=== PATIENT | female | born 1995 | race Caucasian/White ===

== ENCOUNTER 2017-03-11 13:50 | Emergency (ER) | payer BC ==
[2017-03-11 13:54] VITALS: BP 126/81; BMI 27.3
--- NOTE | 2017-03-11 16:05 | DR.GENAD ---
HPI - PCP Primary Care Physician: DIANNA - HPI Comment HPI Comment: Pt states she fell in high school and her back 'hasn't been right' since then. No new injury, but stands on a concrete floor all day at work. Symptoms are less when she has a few days off. No prior imaging - Complaint/Symptoms Chief Complaint:: PT. C/O LOWER BACK PAIN THAT IS THROBBING IN NATURE WHICH RADIATES DOWN HER LEGS. PAIN HAS BEEN INTERMITTENT SINCE 2016. PT. STATES SHE WORKS ON HER FEET A LOT SO SHE THINKS THAT IS WHAT IS CAUSING HER PAIN. - Source History Provided: Patient - Mode of Arrival Mode of Arrival: Ambulatory - Timing Onset of Chief Complaint: 10/09/16 PMH - PMH Past Medical History: No Past Surgical History: No Surgical History: No History - Family History History of Family Medical Conditions: No - Social History Does patient currently use any type of tobacco product: Yes Have you used tobacco products in the last 12 months: Yes Type of Tobacco Use: Cigarettes Does any household member use tobacco: Yes Alcohol Use: None Do you use any recreational Drugs:: No Lives With: Significant Other Lives Where: Home - infectious screening In the last 2 months have you had wt loss of >10#?: NO Have you had fever, night sweats or hemotysis?: No Have you traveled outside the country in the last 6 months?: No Isolation: Standard ROS - Review of Systems Constitutional: No Symptoms Reported Eyes: No Symptoms Reported ENTM: No Symptoms Reported Respiratoy: No Symptoms Reported Cardiovascular: No Symptoms Reported Gastrointestinal/Abdominal: No Symptoms Reported Genitourinary: No Symptoms Reported Neurological: No Symptoms Reported Musculoskeletal: Back Pain, Other (radiates down both legs) Integumentary: No Symptoms Reported Hematologic/Lymphatic: No Symptoms Reported Endocrine: No Symptoms Reported Psychiatric: No Symptoms Reported All Other Systems: Reviewed and Negative PE - Vital Signs Vitals: Temperature 97.6 F Pulse Rate 78 Respiratory Rate 17 Blood Pressure 126/81 O2 Sat by Pulse Oximetry 97 - General Limitations: No Limitations General Appearance: Alert, In No Apparent Distress. negative: Appears Intoxicated, Anxious, Lethargic, Obtunded, In Distress, Obese, Cachectic - Head Head Exam: Normal Inspection - Eyes Eye exam: Normal Appearance - ENT ENT Exam: Normal Exam - Neck Neck Exam: Normal Inspection, Full ROM, Trachea Midline - Chest Chest Inspection: Normal Inspection - Respiratory Respiratory Exam: Normal Lung Sounds Bilat Respiratory Exam: Bilateral Clear to Auscultation - Cardiovascular Cardiovascular Exam: Regular Rate, Normal Rhythm - Abdominal Exam Abdominal Exam: Normal Inspection, Normal Bowel Sounds, Soft - Back Back Exam: Tenderness, Other (tender at L3 area bilaterally, no palp bony deformity, no stepoffs, no palpable muscle spasm) - Neurologic Neurological Exam: Alert, Oriented X3 - Psychiatric Psychiatric Exam: Normal Affect, Normal Mood - Skin Skin Exam: Warm, Dry, Intact. negative: Rash - Discharge Plan Condition: Stable - Follow ups/Referrals Follow ups/Referrals: [facility],None [Primary Care Provider] - 3 days - Instructions
--- NOTE | 2017-03-11 16:26 | RAD ---
HISTORY: Low back pain and radiculopathy. Study: 5 views of the lumbar spine. Comparison: None. Findings: 5 non-rib bearing lumbar vertebra. No acute fracture or listhesis. The vertebral body heights and d isc spaces are normal. The SI joints are normal. The soft tissues are unremarkable. IMPRESSION: Unremarkable exam. Reported By:
[2017-03-11 16:41] LABS: BILIRUBIN,URINE NEGATIVE (NEGATIVE); BLOOD/HEMOGLOBIN,URINE 3+ (NEGATIVE); GLUCOSE, URINE NEGATIVE (NEGATIVE); KETONES,URINE NEGATIVE (NEGATIVE); LEUKOCYTE ESTERASE ,URINE NEGATIVE (NEGATIVE); NITRITES,URINE NEGATIVE (NEGATIVE); PROTEIN,URINE NEGATIVE (NEGATIVE); UROBILINOGEN,URINE NORMAL (NORMAL)
[2017-03-11 17:01] LABS: COLOR,URINE YELLOW (YELLOW)
[2017-03-11 17:02] LABS: APPEARANCE,URINE CLEAR (CLEAR); BACTERIA,URINE 1+ /HPF (NEGATIVE); SQUAMOUS EPITHELIAL CELL,UR FEW /HPF (NEGATIVE)
== END 2017-03-11 17:26 | disposition home or self-care (01) ==
LOC: ER 14:03
DX: S39.012A Strain of muscle, fascia and tendon of lower back, initial encounter (principal); Y33.XXXA Other specified events, undetermined intent, initial encounter; Y92.69 Other specified industrial and construction area as the place of occurrence of the external cause
CPT/HCPCS: 72110; 81001; 99282

== ENCOUNTER 2021-07-17 01:23 | Inpatient (IN) ==
[2021-07-17 01:38] VITALS: BMI 31.4
[2021-07-17] MEDS ORDERED: D5 1/2 NS 1,000 ML 1,000 ML IV ONE (02:05)
[2021-07-17] MEDS ORDERED: LR 1,000 ML IV 1,000 ML IV ONE ×2 (02:41→02:59)
[2021-07-17 02:45] LABS: BILIRUBIN,URINE NEGATIVE (NEGATIVE); BLOOD/HEMOGLOBIN,URINE NEGATIVE (NEGATIVE); GLUCOSE, URINE NEGATIVE (NEGATIVE); KETONES,URINE NEGATIVE (NEGATIVE); LEUKOCYTE ESTERASE ,URINE 1+ (NEGATIVE); NITRITES,URINE NEGATIVE (NEGATIVE); PROTEIN,URINE NEGATIVE (NEGATIVE); UROBILINOGEN,URINE NORMAL (NORMAL)
[2021-07-17 02:52] LABS: APPEARANCE,URINE CLEAR (CLEAR); COLOR,URINE YELLOW (YELLOW)
[2021-07-17 02:53] LABS: BACTERIA,URINE TRACE /HPF (NEGATIVE); RBC,URINE 0-2 /HPF (0-3); SQUAMOUS EPITHELIAL CELL,UR MODERATE /HPF (NEGATIVE)
[2021-07-17] MEDS ORDERED: PHENERGAN INJ 25 MG IM PRN ×2 (02:57→11:07)
[2021-07-17] MEDS ORDERED: D5 LR + PITOCIN 10 UNITS/L 10 UNITS/1,000 ML BAG IV PRN (02:57)
[2021-07-17] MEDS ORDERED: PITOCIN IVP ONE (02:57)
[2021-07-17] MEDS ORDERED: DILAUDID INJ IVP PRN (02:57)
[2021-07-17] MEDS ORDERED: REGLAN INJ 10 MG VIAL IVP PRN (02:57)
[2021-07-17] MEDS ORDERED: D5 1/2 NS 1,000 ML 1,000 ML IV SCH ×2 (03:00)
[2021-07-17 03:11] LABS: BASOPHILS % (AUTO) 0.3 % (0.2-1.0); EOSINOPHILS % (AUTO) 0.1 % (0.9-2.9); HEMATOCRIT 34.8 % (36.0-47.0); HEMOGLOBIN 11.7 g/dL (12.0-16.0); LYMPHOCYTES # (AUTO) 1.1 X10^3/uL (1.3-2.9); LYMPHOCYTES % (AUTO) 8.9 % (21.0-51.0); MEAN CORPUSCULAR HEMOGLOBIN 27.1 pg (27.0-34.0); MEAN CORPUSCULAR HGB CONC 33.5 g/dL (33.0-35.0); MEAN CORPUSCULAR VOLUME 80.8 fL (80.0-100.0); MEAN PLATELET VOLUME 9.8 fL (7.4-11.0); MONOCYTES # (AUTO) 0.3 x10^3/uL (0.3-0.8); MONOCYTES % (AUTO) 2.5 % (0.0-13.0); NEUTROPHILS # (AUTO) 10.7 x10^3/uL (2.2-4.8); NEUTROPHILS % (AUTO) 88.2 % (42.0-75.0); RED BLOOD COUNT 4.31 X10^6/uL (3.5-5.4); RED CELL DISTRIBUTION WIDTH 14.3 % (11.6-16.5); WHITE BLOOD COUNT 12.1 X10^3/uL (3.6-10.0)
[2021-07-17] MEDS: STADOL INJ IVP PRN ×2 (03:15→07:40)
[2021-07-17 03:23] LABS: AMNISURE ROM TEST NO MEMBRANES RUPTURE (NO RUPTURE)
[2021-07-17 03:23] LABS: ALANINE AMINOTRANSFERASE 15 Units/L (12-78); ALBUMIN 2.5 g/dL (3.4-5.0); ALKALINE PHOSPHATASE 175 Units/L (46-116); ASPARTATE AMINO TRANSFERASE 10 Units/L (15-37); BLOOD UREA NITROGEN 6 mg/dL (7-18); CALCIUM 8.2 mg/dL (8.5-10.1); CARBON DIOXIDE 25.2 mmol/L (21-32); CHLORIDE 100 mmol/L (98-107); COR CA(FOR HYPOALB) 9.4 mg/dL (8.5-10.1); COR NA(FOR HYPERGLY) 134 mmol/L (136-145); CREATININE 0.55 mg/dL (0.55-1.02); SODIUM 134 mmol/L (136-145); TOTAL PROTEIN 6.2 g/dL (6.4-8.2); eGFR NON BLACK RACES > 60 (>60)
[2021-07-17] MEDS ORDERED: BETADINE SOLN ONE (03:26)
[2021-07-17] MEDS ORDERED: D5 1/2 NS 1,000 mL + PITOCIN 20 UNITS/L IV 20 UNITS/1,000 ML BAG IV ONE (03:27)
[2021-07-17] MEDS ORDERED: ZOFRAN INJ 4 MG VIAL ONE (04:01)
[2021-07-17] MEDS ORDERED: FENTANYL VIAL INJ 100 mcg ONE (04:02)
[2021-07-17] MEDS ORDERED: NAROPIN EPIDURAL 0.2% 100 ML ONE (04:02)
[2021-07-17] MEDS ORDERED: STADOL INJ ONE (07:37)
[2021-07-17] MEDS ORDERED: MOTRIN TAB 800 MG PO PRN ×2 (11:07→11:38)
[2021-07-17] MEDS ORDERED: MILK OF MAGNESIA PO PRN (11:38)
[2021-07-17] MEDS ORDERED: AMBIEN PO PRN (11:38)
[2021-07-17] MEDS ORDERED: D5 1/2 NS 1,000 ML 1,000 ML with PITOCIN 20 UNITS IV SCH ×2 (12:00)
[2021-07-17] MEDS ORDERED: BETADINE SOLN TOP ONE (12:43)
[2021-07-17] MEDS: DERMOPLAST PAIN RELIEF SPRAY TOP PRN ×2 (15:22→21:30)
[2021-07-18 04:53] LABS: HEMATOCRIT 31.2 % (36.0-47.0); HEMOGLOBIN 10.6 g/dL (12.0-16.0)
--- NOTE | 2021-07-18 07:57 | NOTE.PROOB ---
progress Note OB- Subjective Data Subjective: No complaints, decreased lochia. Tolerating regular diet. No N/V. Ambulating well. No dysuria. Objective Data Result Diagrams: 07/18/21 04:18 07/17/21 02:58 Objective Data: CV= RRR no MRG Lungs=CTA Bilaterally Abd=(+) BS, soft, NTND, Fundus firm/NT/ at 3 cm below umbilicus. Ext=no edema, NT, no cords Plan (1) (spontaneous vaginal delivery): Plan: ready for d/c
[2021-07-18] MEDS ORDERED: PRENATAL PLUS PO SCH (09:00)
[2021-07-18 12:32] VITALS: BP 129/77
== END 2021-07-18 12:30 | disposition home or self-care (01) | DRG 807 ==
LOC: ER 01:27 → LD 02:49 → MED/SURG 11:41
PROVIDERS: ADMIT Obstetrics & Gynecology; ATTEND Obstetrics & Gynecology
DX: Z3A.39 39 weeks gestation of pregnancy; O26.893 Other specified pregnancy related conditions, third trimester; Z37.0 Single live birth; O70.1 Second degree perineal laceration during delivery; Z20.822 Contact with and (suspected) exposure to COVID-19